=== PATIENT | female | born 1990 | race African-American/Black ===

== ENCOUNTER 2019-07-20 20:28 | Emergency (ER) | payer MEDICAID ==
[~2019-07-20] VITALS: Ht 165.1 cm; Wt 91.0 kg
[2019-07-20] MEDS ORDERED: KETOROLAC 60MG/2ML VIAL IM ONE (22:15)
[2019-07-20 22:58] VITALS: BP 117/74
== END 2019-07-20 22:59 | disposition home or self-care (01) ==
LOC: ER 20:28
DX: M54.2 Cervicalgia (principal)
CPT/HCPCS: 72040; 96372; 99283; J1885